=== PATIENT | male | born 1970 | race Caucasian/White ===

== ENCOUNTER 2019-07-20 20:40 | Emergency (ER) | payer OTHER, MEDICAID ==
[~2019-07-20] VITALS: Ht 185.4 cm; Wt 63.5 kg
[2019-07-20 20:40] VITALS: BP_SYST 139
[2019-07-20] MEDS ORDERED: KETOROLAC TROMETHAMINE 30 MG VIAL IM ONE (21:15)
[2019-07-20] MEDS ORDERED: ACETAMINOPHEN 325 MG TABLET PO ONE (21:15)
[2019-07-20 23:53] VITALS: BP_SYST 123
== END 2019-07-20 23:53 | disposition home or self-care (01) ==
LOC: SED 20:40
DX: S16.1XXA Strain of muscle, fascia and tendon at neck level, initial encounter (principal); V49.69XA Unspecified car occupant injured in collision with other motor vehicles in traffic accident, initial encounter; Y93.89 Activity, other specified; Y92.413 State road as the place of occurrence of the external cause; Y99.8 Other external cause status
CPT/HCPCS: 70450; 72125; 96372; 99285; J1885

== ENCOUNTER 2019-12-29 14:06 | Inpatient (IN) | payer OTHER, MEDICAID ==
[~2019-12-29] VITALS: Ht 185.4 cm; Wt 68.2 kg
[2019-12-29 14:06] VITALS: BP_SYST 109
--- NOTE | 2019-12-29 14:09 | NUR ---
BROUGHT BACK TO BED #6 AND TRIAGED. REPORT TO BE GIVEN TO AUDRA
--- NOTE | 2019-12-29 14:14 | NUR ---
CORA TO ASSUME CARE, RECEIVED AND IN ROOM.
--- NOTE | 2019-12-29 14:44 | NUR ---
DR LOPEZ AT BEDSIDE FOR EVALUATION
[2019-12-29] MEDS ORDERED: NACL 0.9% 1,000 ML IV ONE (14:45)
[2019-12-29] MEDS ORDERED: KETOROLAC TROMETHAMINE 30 MG VIAL IVP ONE ×2 (14:45→18:50)
--- NOTE | 2019-12-29 14:54 | NUR ---
OFF TO CT STEADY GAIT, NO DYSPNEA
--- NOTE | 2019-12-29 14:55 | NUR ---
PATIENT TO ER BED 6, AMBULATORY WITH RADIOLOGY STAFF.
--- NOTE | 2019-12-29 14:56 | NUR ---
REPORT FROM AUDRA LUNDBERG
[2019-12-29 15:10] LABS: BASOPHILS % (AUTO) 0.5 % (0.0-2.0); EOSINOPHILS # (AUTO) 0.1 K/uL (0.0-0.4); EOSINOPHILS % (AUTO) 1.2 % (0.0-4.0); HEMATOCRIT 41.4 % (36-54); HEMOGLOBIN 14.3 g/dL (14.0-18.0); MEAN CORPUSCULAR HEMOGLOBIN 30 pg (27-31); MEAN CORPUSCULAR HGB CONC 35 % (32-36); MEAN CORPUSCULAR VOLUME 86 fL (79.0-98.0); MONOCYTES # (AUTO) 1.4 K/uL (0.0-1.0); MONOCYTES % (AUTO) 14.3 % (1.7-9.3); NEUTROPHILS # (AUTO) 7.1 K/uL (1.8-7.7); PLATELET COUNT (AUTO) 249 K/uL (130-430); RED BLOOD CELL COUNT(AUTO) 4.81 MIL/uL (4.2-6.2); RED CELL DISTRIBUTION WIDTH 14.2 % (9.0-15.0); WHITE BLOOD COUNT (AUTO) 9.6 K/uL (4.8-10.8)
--- NOTE | 2019-12-29 15:33 | NUR ---
Notified ED Admitting of pt pending status of transfer/ admission.
--- NOTE | 2019-12-29 15:35 | NUR ---
REPORT TO AUDRA LUNDBERG
[2019-12-29] MEDS ORDERED: PIPERACILLIN/TAZOBACTAM 3.375 GM/VIAL (ZOSYN) IV ONE (15:44)
[2019-12-29] MEDS ORDERED: PIPERACILLIN/TAZO 3.375 GM in NS 50 ML IV ONE (15:45)
[2019-12-29] MEDS ORDERED: MORPHINE 4 MG/ML INJ. SYRINGE IVP ONE (15:45)
[2019-12-29 15:55] LABS: CALCIUM 8.9 mg/dL (8.4-11.0); CREATININE 1.16 mg/dL (0.55-1.30); POTASSIUM 3.9 mmol/L (3.5-5.1)
[2019-12-29 16:01] LABS: TOTAL BILIRUBIN 0.5 mg/dL (0.0-1.0)
--- NOTE | 2019-12-29 16:33 | NUR ---
CALM, ALERT, STATED PAIN TOLERABLE, RESP UNLABORED, NO COMPLAINTS. IV ABX GIVEN,
[2019-12-29] MEDS ORDERED: ACETAMINOPHEN 325 MG TABLET PO ONE (16:45)
--- NOTE | 2019-12-29 16:45 | NUR ---
DR SINGLETON IN TO ASSESS
[2019-12-29] MEDS ORDERED: ACETAMINOPHEN 325 MG TABLET ONE (17:25)
--- NOTE | 2019-12-29 17:37 | NUR ---
AUTH #: [id number] ed admitting spoke to phill, gave auth for admission. will page for admission.
[2019-12-29] MEDS ORDERED: PANTOPRAZOLE SODIUM 40 MG/VIAL (PROTONIX) IVP ONE (18:15)
--- NOTE | 2019-12-29 18:18 | NUR ---
ADMIT ORDERS RECEIVED FOR ADMIT TO M/S. DX ACUT APPENDICITIS
[2019-12-29] MEDS ORDERED: ACETAMINOPHEN 650 MG SUPP.RECT RC PRN (18:45)
[2019-12-29] MEDS ORDERED: ONDANSETRON HCL 4 MG/2 ML VIAL IVP PRN (18:45)
--- NOTE | 2019-12-29 18:45 | NUR ---
UPDATE GIVEN TO MOTHER
[2019-12-29] MEDS ORDERED: ONDANSETRON HCL 4 MG/2 ML VIAL IVP ONE (18:50)
[2019-12-29] MEDS ORDERED: NS IRRIG SOLN 1000 ML IR ONE (18:50)
[2019-12-29] MEDS ORDERED: LR 1,000 ML IV.SOLN IV ONE (18:50)
[2019-12-29] MEDS ORDERED: GLYCOPYRROLATE 0.2 MG/ML VIAL IJ ONE (18:50)
[2019-12-29] MEDS ORDERED: SEVOFLURANE 15 MIN GAS INH ONE (18:50)
[2019-12-29] MEDS ORDERED: NS 1000 ML IV.SOLN IV ONE (18:50)
[2019-12-29] MEDS ORDERED: PROPOFOL 200MG/ 20ML VIAL (DIPRIVAN) IV ONE (18:50)
[2019-12-29] MEDS ORDERED: fentaNYL CITRATE/PF 100 MCG/2 ML AMP IVP ONE (18:50)
[2019-12-29] MEDS ORDERED: BUPIVACAINE /EPINEPHRINE/PF 0.25% 30 ML VIAL INJ ONE (18:50)
[2019-12-29] MEDS ORDERED: ROCURONIUM BROMIDE 10 MG/ML (ZEMURON) IV ONE (18:50)
[2019-12-29] MEDS ORDERED: MIDAZOLAM HCL 5 MG/5 ML VIAL IVP ONE (18:50)
--- NOTE | 2019-12-29 18:57 | NUR ---
DR FREEDMAN IN TO ASSESS. PT CALM, ALERT, NO DISTRESS
[2019-12-29 19:06] LABS: INR 0.9 (0.80-1.20); PROTHROMBIN TIME 9.7 SECS (9.5-12.5)
--- NOTE | 2019-12-29 19:39 | NUR ---
patient moved to bed 2
--- NOTE | 2019-12-29 19:52 | NUR ---
Patient will be admitted to care of [facility]. Admitted Zaira/Sunit. Will go to room 117B Belongings list completed. Complete and up to date summary report printed. SBAR report to be given at bedside with opportunity for questions.
--- NOTE | 2019-12-29 20:00 | NUR ---
ADMISSION NOTE Received patient from ER via gurney. Patient admitted with diagnosis of acute appendicitis. Patient is awake, alert, oriented X 4. Patient oriented to hospital room, call light, toileting, pain management and safety-teach back done. Patient informed that patricia will be nurse and that their room number is 117B. Personal belongings checked and Belongings List documented. Call light within reach.
[2019-12-29 20:05] VITALS: BP_SYST 118
[2019-12-29] MEDS ORDERED: FLU VACC QS2020-21 (6 mos & up) 0.5 ML/SYRINGE I.M. PRN (20:15)
[2019-12-29] MEDS: POTASSIUM CHLORIDE 10 MEQ in NACL 0.9% 1,000 ML IV SCH (20:22)
[2019-12-29] MEDS ORDERED: NALOXONE HCL 0.4 MG/ML AMP (NARCAN) IVP PRN (21:15)
[2019-12-29] MEDS ORDERED: MORPHINE 2 MG/ML INJ. SYRINGE IVP PRN (21:15)
[2019-12-29] MEDS ORDERED: LEVOFLOXACIN 500 MG/D5W 100 ML IV ONE (21:48)
[2019-12-29] MEDS ORDERED: metroNIDAZOLE 500 mg/NS 200 ML IV ONE (21:48)
[2019-12-29] MEDS: LEVOFLOXACIN 500 MG/D5W 100 ML IV SCH (22:08)
--- NOTE | 2019-12-29 23:35 | NUR ---
DR. SINGLETON (ER DOCTOR) SPOKE WITH DR. ACOSTA ABOUT THE PATIENT.
[2019-12-29] MEDS: metroNIDAZOLE 500 mg/NS 100 ML IV SCH (23:59)
[2019-12-30 00:50] VITALS: BP_SYST 113
[2019-12-30] MEDS ORDERED: FLU VACC QS2020-21 (6 mos & up) 0.5 ML/SYRINGE I.M. ONE (05:51)
[2019-12-30] MEDS: metroNIDAZOLE 500 mg/NS 100 ML IV SCH ×3 (05:57→22:37)
[2019-12-30] MEDS: POTASSIUM CHLORIDE 10 MEQ in NACL 0.9% 1,000 ML IV SCH ×2 (06:03→09:45)
[2019-12-30 07:12] LABS: BASOPHILS % (AUTO) 0.4 % (0.0-2.0); EOSINOPHILS # (AUTO) 0.1 K/uL (0.0-0.4); EOSINOPHILS % (AUTO) 0.7 % (0.0-4.0); HEMATOCRIT 36.5 % (36-54); HEMOGLOBIN 12.3 g/dL (14.0-18.0); LYMPHOCYTES # (AUTO) 0.7 K/uL (1.0-5.5); LYMPHOCYTES % (AUTO) 7.1 % (20.5-51.5); MEAN CORPUSCULAR HEMOGLOBIN 29 pg (27-31); MEAN CORPUSCULAR HGB CONC 34 % (32-36); MEAN CORPUSCULAR VOLUME 86 fL (79.0-98.0); MONOCYTES # (AUTO) 1.6 K/uL (0.0-1.0); MONOCYTES % (AUTO) 15.1 % (1.7-9.3); NEUTROPHILS % (AUTO) 76.7 % (40.0-70.0); PLATELET COUNT (AUTO) 242 K/uL (130-430); RED BLOOD CELL COUNT(AUTO) 4.23 MIL/uL (4.2-6.2); RED CELL DISTRIBUTION WIDTH 13.6 % (9.0-15.0); WHITE BLOOD COUNT (AUTO) 10.5 K/uL (4.8-10.8)
--- NOTE | 2019-12-30 07:28 | NUR ---
OPENING NOTE Patient resting in the bed. No acute distress. AAO x 4. Denied of pain. Skin warm and dry to touch. IV intact to LFA, no redness, no swelling, no drainage. On KCl 10mEq in NS at 100ml/hr, infusing well. Discussed the safety issue, use call light when needs help, and plan of care, verbally understanding. Safety measure maintained. Bed locked in low position, side rails up. Refused bed alarm, risk and benefit explained, verbally understanding. Will continue to monitor.
[2019-12-30 07:35] LABS: ALBUMIN 2.5 g/dL (3.4-4.8); CALCIUM 7.8 mg/dL (8.4-11.0); CREATININE 0.95 mg/dL (0.55-1.30); POTASSIUM 4.2 mmol/L (3.5-5.1); THYROID STIMULATING HORMONE 0.97 uIu/mL (0.36-3.74); TOTAL BILIRUBIN 0.5 mg/dL (0.0-1.0)
[2019-12-30 07:45] VITALS: BP_SYST 117
[2019-12-30] MEDS: PANTOPRAZOLE SODIUM 40 MG/VIAL (PROTONIX) IVP SCH (09:45)
--- NOTE | 2019-12-30 11:53 | NUR ---
MORPHINE GIVEN Patient c/o headache 08/18, Morphine 1mg IVP given as ordered. No acute distress. IV intact, IVF infusing well. Safety measure maintained. Call light within reached. Continue to monitor.
--- NOTE | 2019-12-30 11:59 | NUR ---
SEEN AND EXAMINED BY GEE PAREDES. Assessed and explained the condition to patient. Answered the question that the patient has.
[2019-12-30 12:31] VITALS: BP_SYST 102
--- NOTE | 2019-12-30 15:21 | NUR ---
DC Planing: Updated clinical to SCOTT Queen at [facility] [place] # [phone]: the surgeon is planning for r/o appendicitis surgery today. CT abd/Pelvic showed : fecal impaction, small hernia. PT still c/o abd pain. >> F/U MD: Dr Huber Betancourt tel # [phone], [address] [place] [address].
[2019-12-30 16:04] VITALS: BP_SYST 107
[2019-12-30] MEDS ORDERED: fentaNYL CITRATE/PF 100 MCG/2 ML AMP IVP PRN ×2 (16:30)
[2019-12-30] MEDS ORDERED: ONDANSETRON HCL 4 MG/2 ML VIAL IVP PRN (16:30)
--- NOTE | 2019-12-30 17:40 | NUR ---
SEEN AND EXAMINED BY SAULO STORY.
[2019-12-30 18:24] VITALS: BP_SYST 107
--- NOTE | 2019-12-30 18:31 | NUR ---
PATIENT LEFT UNIT TO OR VIA BED IN STABLE CONDITION.
[2019-12-30] MEDS ORDERED: HYDROcodone/ACETAMIN 5-325 MG TAB (NORCO/ VICODIN) PO PRN (21:00)
[2019-12-30] MEDS ORDERED: HYDROmorphone 2 MG/ML VIAL IVP PRN (21:00)
--- NOTE | 2019-12-30 21:45 | NUR ---
RECEIVED PATIENT FROM OR NURSE PATIENT ARRIVED TO FLOOR VIA GURNEY. REPORT RECEIVED FROM PACU NURSE. PATIENT SLEEPING, AROUSABLE TO TACTILE STIMULATION. SURGICAL DRESSING TO ABDOMEN, CLEAN, DRY, AND INTACT. BARBARA DRAIN IN PLACE TO LEFT LOWER ABDOMEN, PATENT AND DRAINING RED FLUID. FRANZ CATHETER IN PLACE, PATENT AND DRAINING YELLOW URINE TO GRAVITY. BILATERAL SCDS IN PLACE AND FUNCTIONING PROPERLY. BED LOCKED IN LOW POSITION, CALL LIGHT IN REACH. WILL CONTINUE TO MONITOR.
[2019-12-30] MEDS: MORPHINE 4 MG/ML INJ. SYRINGE IVP PRN (22:47)
--- NOTE | 2019-12-30 22:50 | NUR ---
PAIN MEDICATION PATIENT COMPLAINS OF ABDOMINAL PAIN, MEDICATED WITH MORPHINE ORDERED. PATIENT TOLERATED. PATIENT REMAINS NPO. WILL CONTINUE TO MONITOR.
[2019-12-31] MEDS: LEVOFLOXACIN 500 MG/D5W 100 ML IV SCH ×2 (00:08→21:45)
--- NOTE | 2019-12-31 00:10 | NUR ---
SPOKE WITH FAMILY UPDATED PATIENT'S MOTHER REGARDING PATIENT'S STATUS. MOTHER VERBALIZED UNDERSTANDING.
--- NOTE | 2019-12-31 01:45 | NUR ---
RN ROUNDS PATIENT CONFUSED ABOUT SURGERY HE HAD, EDUCATED PATIENT. PATIENT VERBALIZED UNDERSTANDING.
[2019-12-31] MEDS: POTASSIUM CHLORIDE 10 MEQ in NACL 0.9% 1,000 ML IV SCH ×3 (03:58→22:15)
[2019-12-31] MEDS: metroNIDAZOLE 500 mg/NS 100 ML IV SCH ×3 (05:37→21:45)
[2019-12-31 06:34] LABS: BASOPHILS % (AUTO) 0.2 % (0.0-2.0); EOSINOPHILS % (AUTO) 0.1 % (0.0-4.0); HEMATOCRIT 34.7 % (36-54); HEMOGLOBIN 11.6 g/dL (14.0-18.0); LYMPHOCYTES # (AUTO) 0.5 K/uL (1.0-5.5); LYMPHOCYTES % (AUTO) 6.4 % (20.5-51.5); MEAN CORPUSCULAR HEMOGLOBIN 29 pg (27-31); MEAN CORPUSCULAR HGB CONC 33 % (32-36); MEAN CORPUSCULAR VOLUME 87 fL (79.0-98.0); MONOCYTES # (AUTO) 1.1 K/uL (0.0-1.0); MONOCYTES % (AUTO) 12.5 % (1.7-9.3); NEUTROPHILS # (AUTO) 6.8 K/uL (1.8-7.7); NEUTROPHILS % (AUTO) 80.8 % (40.0-70.0); PLATELET COUNT (AUTO) 249 K/uL (130-430); RED BLOOD CELL COUNT(AUTO) 4.01 MIL/uL (4.2-6.2); WHITE BLOOD COUNT (AUTO) 8.4 K/uL (4.8-10.8)
[2019-12-31 07:02] LABS: ALBUMIN 2.2 g/dL (3.4-4.8); CALCIUM 7.6 mg/dL (8.4-11.0); CREATININE 0.79 mg/dL (0.55-1.30); POTASSIUM 4.2 mmol/L (3.5-5.1); TOTAL BILIRUBIN 0.4 mg/dL (0.0-1.0)
[2019-12-31 08:00] VITALS: BP_SYST 132
--- NOTE | 2019-12-31 08:00 | NUR ---
initial notes rec patient awake alert with hob elevated. ivf infusing well on the l forearm. no infiltration noted. resp easy and unlabored. no sob noted.bed to the lowest position and side rails up and locked. call light within reached. lower abd dressing dry and intact. with higinio in place and scanty amount noted. denies pain at this time. will continue to monitor patient.
[2019-12-31] MEDS: PANTOPRAZOLE SODIUM 40 MG/VIAL (PROTONIX) IVP SCH (09:12)
--- NOTE | 2019-12-31 09:35 | NUR ---
rounds dudley cath was dc/d and will observe for voiding . seen by pa of dr luther and spoke with patient re npo at this time still. due med given.
[2019-12-31 11:33] VITALS: BP_SYST 126
--- NOTE | 2019-12-31 12:00 | NUR ---
rounds up sitted at bedside for 15 mins only stated feels like throwing up when sitting for long.
[2019-12-31] MEDS: ENOXAPARIN SODIUM 40 MG/0.4 ML SYRINGE SUBCUT SCH (15:17)
[2019-12-31 15:30] VITALS: BP_SYST 128
--- NOTE | 2019-12-31 19:30 | NUR ---
OPENING NOTE RECEIVED PATIENT AWAKE, ALERT, ORIENTED X4. RESPIRATIONS EVEN AND UNLABORED ON ROOM AIR. PATIENT DENIES PAIN AT THIS TIME. PATIENT REMAINS NPO. SURGICAL DRESSING IN PLACE TO ABDOMEN, CLEAN DRY AND INTACT WITH BARBARA DRAIN NOTED TO LEFT ABDOMEN. IV SITE INTACT AND PATENT WITH IV FLUIDS RUNNING WITH NO SIGNS OF INFILTRATION NOTED. SAFETY AND FALL PRECAUTIONS IN PLACE. BED LOCKED IN LOW POSITION WITH CALL LIGHT IN REACH.
[2019-12-31 20:00] VITALS: BP_SYST 121
[2019-12-31] MEDS: MORPHINE 4 MG/ML INJ. SYRINGE IVP PRN (21:44)
[2020-01-01] VITALS: BP_SYST 118
[2020-01-01] MEDS: metroNIDAZOLE 500 mg/NS 100 ML IV SCH ×3 (06:00→22:36)
--- NOTE | 2020-01-01 06:00 | NUR ---
CLOSING NOTE PATIENT TOLERATED ALL MEDICATIONS ORDERED. IN BED AWAKE WITH NO SIGNS OF DISTRESS NOTED. RESPIRATIONS EVEN AND UNLABORED ON ROOM AIR. IV REMAINS PATENT AND INTACT. SAFETY AND FALL PRECAUTIONS REMAIN IN PLACE. BED LOCKED IN LOW POSITION WITH CALL LIGHT IN REACH. WILL CONTINUE TO MONITOR UNTIL ENDORSED TO AM NURSE.
[2020-01-01 08:00] VITALS: BP_SYST 131
--- NOTE | 2020-01-01 08:00 | NUR ---
initial notes rec patient awake laert with ivf infusing well on the l forearm. no infiltration noted. resp easy and unlabored. no sob noted. abd dressing dry and intact. denies pain at this time. no sob noted. call light within reached.
[2020-01-01] MEDS: ENOXAPARIN SODIUM 40 MG/0.4 ML SYRINGE SUBCUT SCH (09:57)
[2020-01-01] MEDS: PANTOPRAZOLE SODIUM 40 MG/VIAL (PROTONIX) IVP SCH (09:57)
[2020-01-01] MEDS: KCL 20 mEq in D5NS 1000 mL 1,000 ML IV SCH ×2 (09:58→21:02)
--- NOTE | 2020-01-01 10:14 | NUR ---
rounds due meds given and patti well. reinforced to use incentive spirometer. sob noted.
[2020-01-01 11:53] VITALS: BP_SYST 124
--- NOTE | 2020-01-01 13:48 | NUR ---
rounds seen by dr luther and dr calvo. pt dressing was removed by dr luther. incision looks clean and svitlana intact. no bleeding noted. higinio intact. painted with betadine and covered with 4x4 and a binder. ambulating on the hallway and patti well.
[2020-01-01] MEDS ORDERED: BENZOCAINE/MENTHOL 1 EACH LOZENGE MM PRN (14:15)
[2020-01-01 16:12] VITALS: BP_SYST 118
--- NOTE | 2020-01-01 18:45 | NUR ---
closing notes ambulating to the br and voiding freely. denies pain but c/o of coughing. assisted back in bed. bed to the lowest position nad side rails up and locked. call light within reached.
--- NOTE | 2020-01-01 19:30 | NUR ---
OPENING NOTE RECEIVED PATIENT AWAKE, ALERT, ORIENTED X4, WATCHING TV COMFORTABLY. RESPIRATIONS EVEN AND UNLABORED ON ROOM AIR. PATIENT DENIES PAIN AT THIS TIME. PATIENT REMAINS NPO. ABDOMINAL BINDER IN PLACE, DRESSING CLEAN DRY AND INTACT WITH BARBARA DRAIN NOTED TO LEFT ABDOMEN. IV SITE INTACT AND PATENT WITH IV FLUIDS RUNNING WITH NO SIGNS OF INFILTRATION NOTED. SAFETY AND FALL PRECAUTIONS IN PLACE. BED LOCKED IN LOW POSITION WITH CALL LIGHT IN REACH.
[2020-01-01 20:00] VITALS: BP_SYST 121
[2020-01-01] MEDS: LEVOFLOXACIN 500 MG/D5W 100 ML IV SCH (21:02)
--- NOTE | 2020-01-01 23:15 | NUR ---
RN ROUNDS PATIENT SLEEPING WITH NO SIGNS OF DISTRESS NOTED.
[2020-01-02] VITALS: BP_SYST 133
--- NOTE | 2020-01-02 03:00 | NUR ---
RN ROUNDS PATIENT AMBULATING STEADILY TO RESTROOM, DENIES FEELINGS OF DISCOMFORT AT THIS TIME. WILL CONTINUE TO MONITOR.
[2020-01-02] MEDS: metroNIDAZOLE 500 mg/NS 100 ML IV SCH ×2 (05:52→13:30)
[2020-01-02] MEDS: KCL 20 mEq in D5NS 1000 mL 1,000 ML IV SCH (05:52)
[2020-01-02 06:55] LABS: BASOPHILS % (AUTO) 0.5 % (0.0-2.0); EOSINOPHILS # (AUTO) 0.3 K/uL (0.0-0.4); EOSINOPHILS % (AUTO) 4.6 % (0.0-4.0); HEMATOCRIT 36.5 % (36-54); HEMOGLOBIN 12.4 g/dL (14.0-18.0); LYMPHOCYTES # (AUTO) 0.9 K/uL (1.0-5.5); LYMPHOCYTES % (AUTO) 15.4 % (20.5-51.5); MEAN CORPUSCULAR HEMOGLOBIN 29 pg (27-31); MEAN CORPUSCULAR HGB CONC 34 % (32-36); MEAN CORPUSCULAR VOLUME 86 fL (79.0-98.0); MONOCYTES # (AUTO) 0.9 K/uL (0.0-1.0); MONOCYTES % (AUTO) 15.5 % (1.7-9.3); NEUTROPHILS # (AUTO) 3.6 K/uL (1.8-7.7); PLATELET COUNT (AUTO) 318 K/uL (130-430); RED BLOOD CELL COUNT(AUTO) 4.27 MIL/uL (4.2-6.2); WHITE BLOOD COUNT (AUTO) 5.6 K/uL (4.8-10.8)
[2020-01-02 07:55] VITALS: BP_SYST 127
--- NOTE | 2020-01-02 08:00 | NUR ---
Note Pt sitting up in bed eating his breakfast. No SOB/resp distress or pain/discomfort noted at this time. Abdominal dressing CDI with abdominal binder on. Left forearm IV intact and patent infusing IVF's well. No needs noted at this time. Call light within reach.
[2020-01-02] MEDS: PANTOPRAZOLE SODIUM 40 MG/VIAL (PROTONIX) IVP SCH (08:23)
[2020-01-02] MEDS: ENOXAPARIN SODIUM 40 MG/0.4 ML SYRINGE SUBCUT SCH (08:27)
--- NOTE | 2020-01-02 11:00 | NUR ---
Note Pt has been ambulating to restroom with steady gait and IV pole. No needs noted at this time. Call light within reach.
[2020-01-02 12:04] VITALS: BP_SYST 150
--- NOTE | 2020-01-02 13:10 | NUR ---
Note Pt finished eating his lunch and now restring in bed watching television. No needs noted at this time. Call light within reach.
[2020-01-02 13:50] VITALS: BP_SYST 150
--- NOTE | 2020-01-02 14:30 | NUR ---
Note Nimco WAGGONER working with Dr Pereira) was at pt's bedside and assessment completed at this time. Dr Pereira stated from surgical point of view pt may go home today.
--- NOTE | 2020-01-02 16:15 | NUR ---
NOTE Dr Osborne on the floor to assess pt and write orders. Pt at pt's bedside.
[2020-01-02 16:45] VITALS: BP_SYST 140
[2020-01-02 17:26] VITALS: BP_SYST 125
--- NOTE | 2020-01-02 17:30 | NUR ---
Note Pt's IV in left forearm was dc'd and site benign. No swelling/redness/drainage/bleeding noted at this time. Pt getting dressed in street clothes and packed all belongings. Pt checked side table and drawers for belongings. Pt was given discharge instructions and prescription. Questions/concerns were answered at this time. Pt has abdominal binder on and abdominal dressing CDI at this time. Pt denies any SOB/resp distress or severe abdominal pain/discomfort at this time. Pt's mother Jazmin was called and questions/concerns about discharge and emptying of BARBARA drain explained. Pt was taught and demonstrated back how to empty BARBARA drain and record amounts. Pt was checked on q1' and PRN all shift for needs and care. Pt was maintained with safety precautions all shift. No needs noted at this time.
--- NOTE | 2020-01-02 17:50 | NUR ---
Note Pt off the floor with all his belongings and discharge paperwork/prescription. Pt refused the FLU vaccine at this time. Pt stable.
== END 2020-01-02 17:50 | disposition home or self-care (01) | DRG 329 ==
LOC: SED 14:06 → SMU 18:06 → STU 12-30 21:41 → SMU 01-01 13:54
PROVIDERS: ADMIT Internal Medicine; ATTEND Internal Medicine
PROC: 0WJG4ZZ Inspection of Peritoneal Cavity, Percutaneous Endoscopic Approach (ICD-10-PCS; 2019-12-30)
PROC: 0DQH0ZZ Repair Cecum, Open Approach (ICD-10-PCS; 2019-12-30)
PROC: 0DNH4ZZ Release Cecum, Percutaneous Endoscopic Approach (ICD-10-PCS; 2019-12-30)
PROC: 06Q Lower Veins, Repair (ICD-10-PCS; 2019-12-30)
PROC: 0D9H00Z Drainage of Cecum with Drainage Device, Open Approach (ICD-10-PCS; 2019-12-30)
PROC: 0DTJ0ZZ Resection of Appendix, Open Approach (ICD-10-PCS; principal; 2019-12-30 17:45)
DX: K35.33 Acute appendicitis with perforation, localized peritonitis, and gangrene, with abscess (principal); E43 Unspecified severe protein-calorie malnutrition; Z68.1 Body mass index [BMI] 19.9 or less, adult; F70 Mild intellectual disabilities; Z20.828 Contact with and (suspected) exposure to other viral communicable diseases; Z53.31 Laparoscopic surgical procedure converted to open procedure
CPT/HCPCS: 36415; 71045; 76376; 80053; 83605; 83690-TC; 84443-TC; 85025; 85610-TC; 85730-TC; 86140; 87040-TC; 87081; 88304; 93005; 94010; 96361; 96374; 96375; 99285; C1727; C9113; G0378; J1650; J1885; J1956; J2250; J2270; J2405; J2543; J2704; J3010; J3480; J3490; J7030; J7120

== ENCOUNTER 2020-01-18 13:19 | Outpatient (CLI) | payer OTHER, MEDICAID | END 2020-01-18 20:46 | disposition home or self-care (01) | LOC: SCA 13:19 | PROVIDERS: ATTEND Surgery | DX: K35.33 Acute appendicitis with perforation, localized peritonitis, and gangrene, with abscess (principal); K57.90 Diverticulosis of intestine, part unspecified, without perforation or abscess without bleeding; K44.9 Diaphragmatic hernia without obstruction or gangrene | CPT/HCPCS: 76376 ==

== ENCOUNTER 2020-02-03 11:26 | Emergency (ER) | payer OTHER, MEDICAID ==
[~2020-02-03] VITALS: Ht 185.4 cm; Wt 68.0 kg
[2020-02-03 12:49] VITALS: BP_SYST 150
--- NOTE | 2020-02-03 12:56 | NUR ---
TRIAGED IN TENT
--- NOTE | 2020-02-03 13:00 | NUR ---
DR. DUFF EXAMINING
[2020-02-03 14:10] VITALS: BP_SYST 142
--- NOTE | 2020-02-03 14:10 | NUR ---
Patient given written and verbal discharge instructions and verbalizes understanding. ER MD discussed with patient the results and treatment provided. Patient in stable condition. ID arm band removed. Rx of PYRIDIUM, DOXY given. Patient educated on pain management and to follow up with PMD. Pain Scale 0/10 Opportunity for questions provided and answered. Medication side effect fact sheet provided.
[2020-02-03 15:20] LABS: BILIRUBIN,URINE NEGATIVE (NEGATIVE); CLARITY/URINE CLEAR (CLEAR); COLOR,URINE YELLOW (YELLOW); GLUCOSE,URINE NEGATIVE (NEGATIVE); KETONES,URINE NEGATIVE (NEGATIVE); LEUKOCYTE ESTERASE ,URINE NEGATIVE (NEGATIVE); NITRITE, URINE NEGATIVE (NEGATIVE); PROTEIN URINE NEGATIVE (NEGATIVE); UROBILINOGEN,URINE 0.2 (0.2-1.0)
[2020-02-03 15:34] LABS: BLOOD, URINE TRACE (NEGATIVE)
[2020-02-03 15:45] LABS: BACTERIA,URINE RARE /HPF (None Seen); RBC,URINE 0-3 /HPF (0-3); WBC,URINE NONE SEEN /HPF (0-3)
[2020-02-03 15:46] LABS: MUCUS,URINE None Seen /LPF (None Seen)
== END 2020-02-03 14:10 | disposition home or self-care (01) ==
LOC: SED 11:26
DX: N39.0 Urinary tract infection, site not specified (principal); R03.0 Elevated blood-pressure reading, without diagnosis of hypertension
CPT/HCPCS: 81000-TC; 99283

== ENCOUNTER 2021-01-29 14:29 | Emergency (ER) | payer OTHER, MEDICAID ==
[~2021-01-29] VITALS: Ht 185.4 cm; Wt 68.0 kg
[2021-01-29 14:30] VITALS: BP_SYST 163
[2021-01-29] MEDS ORDERED: ASCO500T20 PO (14:58)
== END 2021-01-29 15:02 | disposition home or self-care (01) ==
LOC: SED 14:29
DX: K13.0 Diseases of lips (principal); Z79.899 Other long term (current) drug therapy
CPT/HCPCS: 99282

== ENCOUNTER 2021-01-30 21:14 | Emergency (ER) | payer OTHER, MEDICAID ==
[~2021-01-30] VITALS: Ht 185.4 cm; Wt 68.0 kg
[~2021-01-30 21:14] MED LIST: ASCO500T20 PO
[2021-01-30 22:12] VITALS: BP_SYST 172
--- NOTE | 2021-01-30 22:18 | NUR ---
Pt placed to ER waiting room in stable condition.
--- NOTE | 2021-01-31 01:54 | NUR ---
ER Dr. Flores at Triage examining patient.
[2021-01-31] MEDS ORDERED: ACET12.55 PO (02:22)
[2021-01-31 02:44] VITALS: BP_SYST 152
--- NOTE | 2021-01-31 02:44 | NUR ---
Patient given written and verbal discharge instructions and verbalizes understanding. ER MD discussed with patient the results and treatment provided. Patient in stable condition. ID arm band removed. Rx of Tylenol with codeine given. Patient educated on pain management and to follow up with PMD. Pain Scale 2/10. Opportunity for questions provided and answered. Medication side effect fact sheet provided.
== END 2021-01-31 02:44 | disposition home or self-care (01) ==
LOC: SED 21:14
DX: K05.10 Chronic gingivitis, plaque induced (principal); Z79.899 Other long term (current) drug therapy
CPT/HCPCS: 99283